=== PATIENT | male | born 1965 | race Two or more races ===

== ENCOUNTER 2017-05-22 20:39 | Emergency (ER) | payer BC ==
[2017-05-22 20:54] VITALS: BP 134/84
[2017-05-22] MEDS ORDERED: Lidocaine 2% W/EPI 1:100,000* 20 ML MDV INJ ONE (21:21)
[2017-05-22] MEDS ORDERED: Lidocaine 2% PF * 5 ML VIAL INJ ONE (21:28)
--- NOTE | 2017-05-22 22:07 | UC ---
Laceration HPI - HPI Summary HPI Summary: 52 y/o male presents to the urgent care c/o cutting his right lower leg on a metal bench today at 1400 while at a basketball game. Pt reports bleeding stopped w/ pressure. He was wearing long pants. Pain is 2/10 w/ touch. Last Tetanus shot was about more than 5 years. However He declines Tetanus shot since he states he gets it every 10 years. Pt denies numbness and tingling over left lower leg, swelling, SOB, chest pain, N/V/D. - History Of Current Complaint Chief Complaint: UCLaceration Stated Complaint: LEG LAC Time Seen by Provider: 05/22/17 21:20 Laceration Location: Knee - Right macias laceration Mechanism Of Injury: Sharp Trauma Onset/Duration: Sudden Onset, Lasting Hours - 6hrs Severity: Moderate Pain Intensity: 2 Pain Scale Used: 0-10 Numeric Aggravating Factors: Other: - touch - Allergies/Home Medications Allergies/Adverse Reactions: Allergies Allergy/AdvReac Type Severity Reaction Status Date / Time No Known Allergies Allergy Unverified 05/22/17 20:55 PMH/Surg Hx/FS Hx/Imm Hx Previously Healthy: Yes - Pt denies PMHX - Surgical History Surgical History: Yes Surgery Procedure, Year, and Place: VASCECTOMY, - Family History Known Family History: Positive: None - Pt denies FMHX - Social History Occupation: Employed Full-time Lives: With Family Alcohol Use: None Substance Use Type: None Smoking Status (MU): Never Smoked Tobacco - Immunization History Hx Tetanus, Diphtheria Vaccination: Yes Review of Systems Constitutional: Negative Skin: Other - RT lower leg laceration Eyes: Negative ENT: Negative Respiratory: Negative Cardiovascular: Negative Gastrointestinal: Negative Genitourinary: Negative Motor: Negative Neurovascular: Negative Musculoskeletal: Negative Neurological: Negative Psychological: Negative Is Patient Immunocompromised?: No All Other Systems Reviewed And Are Negative: Yes Physical Exam Triage Information Reviewed: Yes Vital Signs: Initial Vital Signs Temp 98.0 F 05/22/17 20:52 Pulse 49 05/22/17 20:52 Resp 12 05/22/17 20:52 BP 134/84 05/22/17 20:52 Pulse Ox 99 05/22/17 20:52 - Additional Comments Vital Signs Reviewed: Yes General: well developed, well nourished male sitting in the examining table w/o any apparent distress Eye Exam: Normal Eyes: Positive: Conjunctiva Clear - PERRLA, EOMI, fundi grossly normal ENT: Positive: Normal ENT inspection, Hearing grossly normal, Pharynx normal, TMs normal Neck: Positive: Supple, Nontender, No Lymphadenopathy Respiratory: Positive: Chest non-tender, Lungs clear, Normal breath sounds, No respiratory distress Cardiovascular: Positive: RRR, No Murmur, Pulses Normal, Brisk Capillary Refill Abdomen Description: Positive: Nontender, No Organomegaly, Soft. Negative: CVA Tenderness (R), CVA Tenderness (L) Bowel Sounds: Positive: Present Musculoskeletal: Positive: Strength Intact, ROM Intact, No Edema Neurological: Positive: Alert, Muscle Tone Normal Psychological Exam: Normal Skin: Positive:dorsal side of RT lover leg over the macias with a linear superficial laceration about 4.0 cm in size, no bleeding, no foreign body observed. mild tenderness to palpation, no swelling. FROM of RT leg, sensation intact, capillary refill brisk, and pulses WNL. Laceration Course/Dx - Course/Dx Course Of Treatment: 52 y/o male presents to the urgent care c/o cutting his right lower leg on a metal bench today at 1400 while at a basketball game. Pt reports bleeding stopped w/ pressure. He was wearing long pants. Pain is 2/10 w / touch. Last Tetanus shot was about more than 5 years. However He declines Tetanus shot since he states he gets it every 10 years. Pt denies numbness and tingling over left lower leg, swelling, SOB, chest pain, N/V/D. Hx obtained. Pt w/ a supeficial linear laceration over the dordal side of the RT lower leg about 4.0cm in size on examination. LACERATION PROCEDURE NOTE: . Copious irrigation was done with saline by the nurse and the wound explored. There was no FB or deep structure injury noted. FROM of RT leg. Procedure was explained and consent obtained, Timeout performed. The wound was anesthetized with 4 mL of 2% lido with good anesthesia. Sterile drape and prep were done. There were 6 sutures with 4.0 nylon type of suture. The length of the wound after closure was 4.0cm. No debridement done. Wound was covered bacitracin with sterile non adherent dressing. The Pt tolerated the procedure well without adverse effects. Neurovascular intact and FROM. Pt declines Tdap booster since he states he is UTD every 10 years w/ the vaccines. He was educated on booster Tdap b/c of laceration. He still decline. Pt advised to f/ u suture removal in 10-12 days and if any signs of infection develop to immediately return to the urgent care of PCP for further management and treatment. Pt understood and agreed and left the clinic ambulating A&Ox3. - Differential Dx - Laceration/Wound Differental Diagnoses: Abrasion, Laceration, Puncture Wound, Tendon Laceration Provider Diagnoses: 1- Laceration repair of the Rt lower leg Discharge - Discharge Plan Condition: Stable Disposition: HOME Patient Education Materials: Laceration (ED) Referrals: David Lebron MD [Primary Care Provider] - 1 Week Additional Instructions: 1- Please apply triple antibiotic BID x 7 days over the wound. Keep wound clean and dry and avoid long periods of standing. elevate your leg at night time. 2- F/u suture removal in 10-14days w/ your PCP or here at the urgent care. 4-Take Ibuprofen or Tylenol PO q6-8hrs prn for pain or swelling. 5- If you develop fever or redness around around wound please return to the Urgent care or f/u w/ your PCP for further treatment.
== END 2017-05-22 22:21 | disposition home or self-care (01) ==
LOC: UCEAST 20:39
DX: S81.811A Laceration without foreign body, right lower leg, initial encounter (principal); W26.8XXA Contact with other sharp object(s), not elsewhere classified, initial encounter; Y93.89 Activity, other specified; Y92.39 Other specified sports and athletic area as the place of occurrence of the external cause
CPT/HCPCS: 12002; 99211; G0463